=== PATIENT | female | born 1980 | race Caucasian/White ===

== ENCOUNTER 2016-08-03 12:52 | Emergency (ER) | payer OTHER ==
[~2016-08-03] VITALS: Ht 160 cm; Wt 116.3 kg
[~2016-08-03 12:52] MED LIST: RIVA1TAB7 PO
[2016-08-03 12:55] VITALS: TEMP 36.7; Ht 160 cm; Wt 116.3 kg
--- NOTE | 2016-08-03 13:57 | DIAGNOSTIC IMAGING REPORT ---
LEFT KNEE 1 OR 2 VIEWS ROUTINE CLINICAL HISTORY: Left knee pain. COMPARISON: None FINDINGS: Alignment of the left knee is anatomic. There is no fracture or suspicious lesion. No joint effusion is identified. Joint spaces are preserved. IMPRESSION: No abnormality of the left knee identified. Electronically signed by: Bean Hurley M.D. 08/03/2016 1:55 PM Dictated Date/Time: 08/03/2016 1:54 PM
--- NOTE | 2016-08-03 14:06 | EMERGENCY ROOM VISIT NOTE ---
ED Visit Note First contact with patient: 12:58 CHIEF COMPLAINT: Left knee pain/injury HISTORY OF PRESENT ILLNESS: This 35-year-old female presents the ER with chief complaint of left knee pain. The patient states 2 weeks ago she slipped in her udsqvoa-ht-nwd's driveway but did not fall down. The patient states since that time she has had pain in the left knee. She denies any other injuries to her left knee or any prior surgeries. The patient does have a history of DVT in the same leg last year. The patient denies any calf pain. The patient denies any locking or giving out on her knee. The patient states that it hurts if you press on to the knee Or if she kneels onto her knee. She also has pain when she flexes the knee but not with extension. REVIEW OF SYSTEMS: 6 system review was performed and was negative unless stated otherwise in history of present illness. PMH: The patient is healthy; cyst on the in the front in the surgery Center or here for , kidney stones, tubal ligation SOCIAL HISTORY: Patient admits to tobacco use and occasional alcohol use. PHYSICAL EXAM: Vital Signs: Were reviewed Reviewed Nurse's notes. GEN.: 35-year -old white female appears in no acute distress. MENTAL STATUS: Alert, oriented , and cooperative. LEFT KNEE: No gross bony deformity noted. No erythema or edema noted. The patient is tenderness palpation over the patella and over the suprapatellar region. She is non-tender to palpation over the medial and lateral joint space. There is no joint effusion. The patient is full range of motion with pain elicited with flexion. The patient is nontender to palpation in the popliteal region. LEFT LOWER EXTREMITY: Is nontender. No palpable cords noted EMERGENCY DEPARTMENT COURSE: The patient was evaluated. The patient drove herself to the emergency room therefore no additional pain medication was given. The patient has been taking ibuprofen 600 mg for the pain. X-ray of the left knee was ordered and interpreted by the radiologist and myself. I discussed with the patient that I cannot rule out a tendon/muscle or ligament tear with the x-ray. The patient verbalized understanding DIAGNOSTICS:LEFT KNEE 1 OR 2 VIEWS ROUTINE CLINICAL HISTORY: Left knee pain. COMPARISON: None FINDINGS: Alignment of the left knee is anatomic. There is no fracture or suspicious lesion. No joint effusion is identified. Joint spaces are preserved. IMPRESSION: No abnormality of the left knee identified. Electronically signed by: Bean Hurley M.D. 08/03/2016 1:55 PM Dictated Date/Time: 08/03/2016 1:54 PM The patient was informed of the findings. The patient was placed in an Mario wrap. The patient was discharged home in stable condition with instructions to follow with orthopedics. DIAGNOSIS: Left knee sprain/pain DISCHARGE INSTRUCTIONS: Wear Mario wrap while ambulating. Ibuprofen 600 mg every 6 hours with food for pain. Take [place] as needed for more severe pain. Do not drive while taking the [place]. Call Dr. Bass for follow-up appointment. Problem List Medical Problems: (1) Pneumonia Status: Resolved (2) Thoracic degenerative disc disease Status: Chronic Surgical Problems: (1) History of delivery Status: Resolved (2) History of tubal ligation Status: Resolved Current/Historical Medications Scheduled PRN Ibuprofen Tab (Advil), 400-600 MG PO Q6H PRN for Pain Allergies Coded Allergies: No Known Allergies (Unverified , 08/29/15) Vital Signs Date Time Temp Pulse Resp B/P Pulse Ox O2 Delivery O2 Flow Rate FiO2 08/03/16 12:55 36.7 96 18 132/62 99 Room Air Departure Information Referrals Lucretia Dalton D.O. (PCP) Patient Instructions A Signature Page, My [facility]
[2016-08-03] MEDS ORDERED: HYDR-5688 PO (14:08)
[2016-08-03 14:12] VITALS: BP 139/71; PULSE 88; O2SAT 100
[2016-08-03] MEDS ORDERED: IBUP-103 PO (16:13)
== END 2016-08-03 14:13 | disposition home or self-care (01) ==
LOC: C.EDB 12:53 → C.EDD 14:13
DX: S83.92XA Sprain of unspecified site of left knee, initial encounter (principal); W18.40XA Slipping, tripping and stumbling without falling, unspecified, initial encounter; Y92.014 Private driveway to single-family (private) house as the place of occurrence of the external cause; F17.200 Nicotine dependence, unspecified, uncomplicated; M51.34 Other intervertebral disc degeneration, thoracic region; Z86.718 Personal history of other venous thrombosis and embolism; Z87.442 Personal history of urinary calculi

== ENCOUNTER 2017-11-25 05:47 | Emergency (ER) | payer OTHER ==
[~2017-11-25] VITALS: Ht 157.5 cm; Wt 117.0 kg
[~2017-11-25 05:47] MED LIST changes: +IBUP-103 PO; -RIVA1TAB7 PO
[2017-11-25 05:51] VITALS: TEMP 36.5; Ht 157.5 cm; Wt 117.0 kg
[2017-11-25] MEDS ORDERED: KETOROLAC TROMETHAMINE 60 MG/2 ML VIAL IM STA (06:03)
--- NOTE | 2017-11-25 06:09 | EMERGENCY ROOM VISIT NOTE ---
History Report prepared by [place]: Humphrey Douglas Under the Supervision of: Dr. Palma Brooks D.O. First contact with patient: 05:56 Chief Complaint: EAR PAIN Stated Complaint: SEVERE EAR ACHE History of Present Illness The patient is a 36 year old female who presents to the Emergency Room with complaints of constant left ear pain beginning a few days ago. The patient states that her ear pain has been waking her up throughout the night tonight. She notes that she has been taking ibuprofen around the clock for her symptoms, and reports that she took ten tablets yesterday with no relief. She also complains of a stuffy nose. She denies any fever, chills, and abdominal pain. She reports that she has a history of ear infections when she was really young but denies any history of diabetes. She rates her pain as a 9/10. Source of History: patient Onset: a few days ago Position: ear (left) Symptom Intensity: 9/10 Timing: constant Associated Symptoms: No fevers, No chills, No abdominal pain Note: The patient also complains of a stuffy nose. Review of Systems See HPI for pertinent positives & negatives. A total of 10 systems reviewed and were otherwise negative. Past Medical & Surgical Medical Problems: (1) Ear infection (2) Kidney stone (3) Pneumonia (4) Thoracic degenerative disc disease Surgical Problems: (1) History of delivery (2) History of tubal ligation Family History Cancer Hypertension Social History Smoking Status: Current Every Day Smoker Alcohol Use: occasionally Drug Use: none Marital Status: Housing Status: lives with family Occupation Status: employed Current/Historical Medications Scheduled PRN Ibuprofen Tab (Advil), 400-600 MG PO Q6H PRN for Pain Allergies Coded Allergies: No Known Allergies (Unverified , 08/29/15) Physical Exam Vital Signs Date Time Temp Pulse Resp B/P (MAP) Pulse Ox O2 Delivery O2 Flow Rate FiO2 11/25/17 05:51 36.5 95 20 136/83 98 Room Air Physical Exam HEENT: Head - normocephalic and atraumatic Pupils are equal, round, and reactive to light. Extraocular eye muscles are intact, and sclera are anicteric. Nose - moist nasal mucosa without discharge. Mouth - moist buccal mucosa. Oropharynx is nonerythematous and there is no tonsillar exudate or edema noted. Ear - Left ear has significant edema and erythema to the canal, TM normal. The right ear is normal. Neck: Supple; no nuchal rigidity or lymphadenopathy Heart: Regular rate and rhythm. There is a normal S1 and S2 with no murmurs, clicks, or gallops appreciated. Lungs: Clear to auscultation bilaterally with no wheezes, rales, or rhonchi. Abdomen: Soft, completely nontender, nondistended, with good bowel sounds. There are no palpable pulsatile masses or hepatosplenomegaly. There is no guarding, rigidity, or rebound noted. Extremities: No evidence of cyanosis, clubbing, or edema. There are easily palpable peripheral pulses. Skin: warm and dry with good turgor and no rashes. Medical Decision & Procedures Medications Administered Medications (Trade) Dose Ordered Sig/Johan Route Start Time Stop Time Status Last Admin Dose Admin Ketorolac Tromethamine (Toradol Inj) 60 mg NOW STAT IM 11/25/17 06:03 11/25/17 06:08 DC 11/25/17 06:20 60 MG Oxycodone/ Acetaminophen (Percocet 5/ 325MG Home Pack) 1 homepack UD ONCE PO 11/25/17 06:15 11/25/17 06:16 DC 11/25/17 06:19 1 HOMEPACK Neomycin/ Polymyxin/ Hydrocortisone (Cortisporin Otic Susp) 4 drops NOW ONCE OTL 11/25/17 06:15 11/25/17 06:16 DC 11/25/17 06:20 4 DROPS Procedure Toradol Inj 60mg IM Cortisporin Otic Susp 4 drops OTL, Oxycodone/Acetaminophen 1 homepack PO ED Course 0557: Past medical records reviewed. The patient was evaluated in room B10. A complete history and physical exam was performed. 0603: Toradol Inj 60mg IM 0615: Cortisporin Otic Susp 4 drops OTL, Oxycodone/Acetaminophen 1 homepack PO 0614: Upon reevaluation, the patient is stable. I discussed findings and results with her. She verbalized agreement of the treatment plan. The patient was discharged home. Medical Decision The patient is a 36 year old female who presents to the Emergency Room with complaints of constant left ear pain beginning a few days ago. Differential diagnoses include: otitis media, otitis externa, and perforated TM. This is a 36-year-old female patient who presents with severe left ear pain. On physical exam, there is evidence of otitis externa. The patient denies any specific swimming but had her head submerged in the bathtub. She was given Toradol here in the emergency department as she drove to the hospital. She was given a Percocet home pack to use when she arrives back home. She was given Cortisporin otic solution to use-4 drops in the left ear every 4 hours. Medication Reconcilliation Current Medication List: was personally reviewed by me Blood Pressure Screening Patient's blood pressure: Elevated blood pressure Blood pressure disposition: Elevated BP felt to be situational (secondary to pain) Impression Primary Impression: Left otitis externa Scribe Attestation The scribe's documentation has been prepared under my direction and personally reviewed by me in its entirety. I confirm that the note above accurately reflects all work, treatment, procedures, and medical decision making performed by me. Departure Information Dispostion Home / Self-Care Referrals Lucretia Dalton D.O. (PCP) Forms HOME CARE DOCUMENTATION FORM, IMPORTANT VISIT INFORMATION, WORK / SCHOOL INSTRUCTIONS Patient Instructions My [facility] Additional Instructions Rest with your head elevated. Percocet 1-2 tabs. every 6 hours for pain. Otherwise use motrin - 800mg every 6-8 hours with food for pain Cortisporin drops - 4 drops to left ear every 6 hours. Follow up by Wednesday to have the ear rechecked. Problem Qualifiers Primary Impression: Left otitis externa Otitis externa type: unspecified type Chronicity: acute Qualified Codes: H60.502 - Unspecified acute noninfective otitis externa, left ear
[2017-11-25] MEDS ORDERED: NEOMYCIN/POLYMYX/HYDROCORT OT SUSP 10 ML BTL OTL ONE (06:15)
[2017-11-25] MEDS ORDERED: PERCOCET HOME PACK PO ONE (06:15)
[2017-11-25 06:44] VITALS: BP 117/91; PULSE 87; O2SAT 96
== END 2017-11-25 06:46 | disposition home or self-care (01) ==
LOC: C.EDB 05:48
DX: H60.502 Unspecified acute noninfective otitis externa, left ear (principal); R03.0 Elevated blood-pressure reading, without diagnosis of hypertension; F17.200 Nicotine dependence, unspecified, uncomplicated

== ENCOUNTER 2017-11-28 14:38 | Emergency (ER) | payer OTHER ==
[~2017-11-28] VITALS: Ht 160 cm; Wt 118.6 kg
[2017-11-28 14:48] VITALS: Ht 160 cm; Wt 118.6 kg
[2017-11-28] MEDS ORDERED: NEOM1SUS21 OP (15:01)
[2017-11-28] MEDS ORDERED: AMOX500C3 PO (15:01)
[2017-11-28 15:15] VITALS: BP 127/82; PULSE 88; TEMP 37; O2SAT 97
--- NOTE | 2017-11-28 16:21 | EMERGENCY ROOM VISIT NOTE ---
ED Visit Note First contact with patient: 14:52 CHIEF COMPLAINT: Left earache HISTORY OF PRESENT ILLNESS: This 36-year-old white female patient has had an earache in the left ear for several days. She was seen here earlier this week and was diagnosed with otitis externa. She was given Cortisporin otic suspension and oral pain medication. She states the ear pain is actually getting worse. She has been using Motrin 600 mg every 6 hours and occasional half tablets of Percocet. She is concerned that it is getting worse. She notes that her hearing has decreased. The pain is moderate, and is gradually increasing. Has noticed swelling and tenderness around the ear canal and pain below the ear on the upper neck. No fevers or chills. No sweats. No nausea or vomiting. No rhinorrhea or cough. She became concerned today when there was wet pus and blood coming from her ear. REVIEW OF SYSTEMS: Head: No headache, injury or neck pain. Throat: No sore throat, dysphagia, or hoarseness. Neck: No pain, stiffness, or swelling. Respiratory: No cough, change in sputum, wheezes, hemoptysis, shortness of breath, or stridor. General: No fever or chills, fatigue, loss of appetite, or significant recent weight gain or loss. PMH: Unchanged from previous exam. Significant for history of pneumonia, DVT, UTIs, kidney stones, and chronic back pain Previous surgeries: , tubal ligation Family history: Significant for hypertension and cancer. Parents are living. Current medications: Percocet, Cortisporin otic suspension Allergies: NKDA SOCIAL HISTORY: Patient lives at home with her and children. Employed. Positive vapor use. Occasional EtOH use. PHYSICAL EXAM: Vital Signs: Reviewed Nurse's notes. Afebrile. SKIN: Warm and dry with good turgor. No rashes or lesions. No ecchymosis or erythema. The patient is not diaphoretic. No abrasions. Mild edema present around the left ear. HEENT: Normocephalic, atraumatic. Nares patent without drainage. Oropharynx without erythema or exudate. The airway is patent. Right ear exam is benign. Left ear tympanic membrane is slightly cloudy and scaly and the ear canal is swollen and inflamed and there is tragal tenderness. Minor exudate within the canal. She has a few raw areas that are bleeding mildly. Tympanic membrane remains well visualized. Lymphatics: Anterior chain is palpated without enlargement or tenderness. Left periauricular nodes are palpated with tenderness. DIAGNOSIS: Acute left ear otitis externa DISCHARGE INSTRUCTIONS & TREATMENT: Patient was educated regarding today's findings. Conservative care measures were discussed. Informational handout was provided. I did place a wick within her ear. She may remove this tomorrow evening at dinnertime. I did place 5 drops of Cortisporin suspension on the wick. Continue Cortisporin otic drops, 4 in the ear canal 4 times a day for 7 days until the pain and swelling are gone. Continue Tylenol and Motrin every 6 hours if needed for the pain. I did offer her additional narcotic. Patient declined. She was also prescribed amoxicillin 500 mg 3 times daily 10 days due to the tympanic membrane changes. Possibility of secondary infection was discussed. Follow-up with her PCP as needed. Return to the ED for any other concerns. Problem List Medical Problems: (1) Pneumonia Status: Resolved (2) Thoracic degenerative disc disease Status: Chronic Surgical Problems: (1) History of delivery Status: Resolved (2) History of tubal ligation Status: Resolved Current/Historical Medications Scheduled Amoxicillin (Amoxil), 500 MG PO TID Rfsjcakt-Iggtsifvo-Eh Otic (Cortisporin Otic), 4 DROPS OP QID Scheduled PRN Ibuprofen Tab (Advil), 400-600 MG PO Q6H PRN for Pain Allergies Coded Allergies: No Known Allergies (Unverified , 08/29/15) Vital Signs Date Time Temp Pulse Resp B/P (MAP) Pulse Ox O2 Delivery O2 Flow Rate FiO2 11/28/17 15:15 37.0 88 18 127/82 97 11/28/17 14:48 37.0 88 18 127/82 97 Room Air Departure Information Impression Primary Impression: Otitis externa of left ear Dispostion Home / Self-Care Prescriptions Sdlyymac-Zbmavxixr-Dj Otic (CORTISPORIN OTIC) 1 Gretta Gretta 4 DROPS OP QID, #1 BTL Prov: Raman Randolph,P.A. 11/28/17 Amoxicillin (AMOXIL) 500 Mg Cap 500 MG PO TID, #30 CAP Prov: Raman Randolph,P.A. 11/28/17 Forms WORK / SCHOOL INSTRUCTIONS, HOME CARE DOCUMENTATION FORM, MOTRIN USE, TYLENOL USE, IMPORTANT VISIT INFORMATION Patient Instructions My [facility] Additional Instructions Keep the ear dry Remove the wick tomorrow at dinnertime Amoxil 1 pill 3 times a day 10 days Continue using the Cortisporin suspension 4 drops in the ear 4 times a day Follow-up with your PCP this week as needed Return to the ED for any acute worsening of symptoms Ibuprofen 600 mg every 6 hours with food Add Tylenol 650 mg every 6 hours as needed
== END 2017-11-28 15:18 | disposition home or self-care (01) ==
LOC: C.EDB 14:39 → C.EDD 15:18
DX: H60.92 Unspecified otitis externa, left ear (principal); Z87.01 Personal history of pneumonia (recurrent); Z86.718 Personal history of other venous thrombosis and embolism; Z87.440 Personal history of urinary (tract) infections; Z87.442 Personal history of urinary calculi; M54.9 Dorsalgia, unspecified; G89.29 Other chronic pain; Z98.51 Tubal ligation status; Z82.49 Family history of ischemic heart disease and other diseases of the circulatory system; Z80.9 Family history of malignant neoplasm, unspecified

== ENCOUNTER 2017-12-19 13:23 | Emergency (ER) | payer OTHER ==
[~2017-12-19] VITALS: Ht 157.5 cm; Wt 121.5 kg
[~2017-12-19 13:23] MED LIST changes: +NEOM1SUS21 OP
[2017-12-19 13:25] VITALS: TEMP 36.7; Ht 157.5 cm; Wt 121.5 kg
[2017-12-19] MEDS ORDERED: MoRPHine SULFATE 4 MG/ML 1 ML CARP\\VIAL IV STA (13:39)
[2017-12-19] MEDS ORDERED: ONDANSETRON INJ 2 MG/ML 2 ML VIAL IV STA (13:39)
[2017-12-19] MEDS ORDERED: KETOROLAC TROMETHAMINE 30 MG/ML VIAL IV STA (13:39)
[2017-12-19] MEDS ORDERED: SODIUM CHLORIDE 0.9% 1000ML 1,000 ML IV ONE (13:45)
--- NOTE | 2017-12-19 14:18 | EMERGENCY ROOM VISIT NOTE ---
History First contact with patient: 13:31 Chief Complaint: BACK PAIN Stated Complaint: SEVERE BACK AND STOMACH PAIN History of Present Illness The patient is a 37 year old female who presents to the Emergency Room with complaints of left-sided flank pain radiating to the left side of her abdomen. The pain is constant, but occasionally intensifies. She tried ibuprofen 800 mg with minimal relief. She has also been nauseated without vomiting. She has had urinary frequency. No blood in her urine. No fever. No changes in bowel movements. She has a history of kidney stones. Review of Systems 10 system review performed and negative unless noted in HPI or below Past Medical/Surgical History Medical Problems: (1) Ear infection (2) Kidney stone (3) Pneumonia (4) Thoracic degenerative disc disease Surgical Problems: (1) History of delivery (2) History of tubal ligation Family History Cancer Hypertension Social History Smoking Status: Never Smoker Alcohol Use: occasionally Drug Use: none Marital Status: Housing Status: lives with family Occupation Status: employed Current/Historical Medications Scheduled Cyclobenzaprine Hcl (Flexeril), 10 MG PO TID Scheduled PRN Hydrocodone/Acetaminophen 5MG/325MG ([place] 5MG/325MG), 1-2 TABLET PO Q4H PRN for Pain Ibuprofen Tab (Advil), 800 MG PO Q6H PRN for Pain Physical Exam Vital Signs Date Time Temp Pulse Resp B/P (MAP) Pulse Ox O2 Delivery O2 Flow Rate FiO2 12/19/17 15:51 76 20 128/89 100 12/19/17 13:25 36.7 87 18 150/83 98 Room Air Physical Exam VITALS: Vitals are noted on the nurse's note and reviewed by myself. Vital signs stable. GENERAL: 37-year-old female, in mild discomfort,,. SKIN: The skin was without rashes, erythema, edema, or bruising. HEAD: Normocephalic atraumatic. EYES: Conjunctivae without injection, sclerae without icterus. Extraocular movements intact. MOUTH: Mucous membranes slightly dry NECK: No JVD. HEART: Regular rate and rhythm without murmurs gallops or rubs. LUNGS: Clear to auscultation bilaterally without wheezes, rales or rhonchi. No accessory muscle use. ABDOMEN: Positive bowel sounds x 4.Soft, nontender, without organomegaly. No guarding or rebound tenderness. Left-sided CVA tenderness noted. MUSCULOSKELETAL: No muscle atrophy, erythema, or edema noted. . Strength 5/5 throughout. NEURO: Patient was alert and oriented to person place and time. Normal sensation to touch. No focal neurological deficits. Medical Decision & Procedures ER Provider Diagnostic Interpretation: CT abdomen and pelvis without IV or oral contrast IMPRESSION: 1. Left-sided nephrolithiasis. No ureteral calculi or hydronephrosis. 2. No bowel obstruction. Normal appendix. 3. No acute process within the abdomen or pelvis on unenhanced study. Electronically signed by: Bean Hurley M.D. 12/19/2017 2:50 PM Dictated Date/Time: 12/19/2017 2:45 PM Laboratory Results 12/19/17 14:05 Red Blood Count 4.75, Mean Corpuscular Volume 84.0, Mean Corpuscular Hemoglobin 28.0, Mean Corpuscular Hemoglobin Concent 33.3, Mean Platelet Volume 10.0, Neutrophils (%) (Auto) 57.7, Lymphocytes (%) (Auto) 33.1, Monocytes (%) (Auto) 6.4, Eosinophils (%) (Auto) 2.5, Basophils (%) (Auto) 0.2, Neutrophils # (Auto) 5.48, Lymphocytes # (Auto) 3.14, Monocytes # (Auto) 0.61, Eosinophils # (Auto) 0.24, Basophils # (Auto) 0.02 12/19/17 14:05 Test 12/19/17 14:05 12/19/17 14:08 White Blood Count 9.50 K/uL (4.8-10.8) Red Blood Count 4.75 M/uL (4.2-5.4) Hemoglobin 13.3 g/dL (12.0-16.0) Hematocrit 39.9 % (37-47) Mean Corpuscular Volume 84.0 fL (80-100) Mean Corpuscular Hemoglobin 28.0 pg (25-34) Mean Corpuscular Hemoglobin Concent 33.3 g/dl (32-36) Platelet Count 234 K/uL (130-400) Mean Platelet Volume 10.0 fL (7.4-10.4) Neutrophils (%) (Auto) 57.7 % Lymphocytes (%) (Auto) 33.1 % Monocytes (%) (Auto) 6.4 % Eosinophils (%) (Auto) 2.5 % Basophils (%) (Auto) 0.2 % Neutrophils # (Auto) 5.48 K/uL (1.4-6.5) Lymphocytes # (Auto) 3.14 K/uL (1.2-3.4) Monocytes # (Auto) 0.61 K/uL (0.11-0.59) Eosinophils # (Auto) 0.24 K/uL (0-0.5) Basophils # (Auto) 0.02 K/uL (0-0.2) RDW Standard Deviation 42.4 fL (36.4-46.3) RDW Coefficient of Variation 13.8 % (11.5-14.5) Immature Granulocyte % (Auto) 0.1 % Immature Granulocyte # (Auto) 0.01 K/uL (0.00-0.02) Anion Gap 8.0 mmol/L (3-11) Est Creatinine Clear Calc Drug Dose 127.5 ml/min Estimated GFR () 118.0 Estimated GFR (Non- 101.8 BUN/Creatinine Ratio 14.7 (10-20) Calcium Level 8.6 mg/dl (8.5-10.1) Urine Color YELLOW Urine Appearance CLEAR (CLEAR) Urine pH 5.5 (4.5-7.5) Urine Specific [place] 1.020 (1.000-1.030) Urine Protein NEG (NEG) Urine Glucose (UA) NEG (NEG) Urine Ketones NEG (NEG) Urine Occult Blood NEG (NEG) Urine Nitrite NEG (NEG) Urine Bilirubin NEG (NEG) Urine Urobilinogen NEG (NEG) Urine Leukocyte Esterase NEG (NEG) Urine Test NEG (NEG) Medications Administered Medications (Trade) Dose Ordered Sig/Johan Route Start Time Stop Time Status Last Admin Dose Admin Sodium Chloride 1,000 ml @ 999 mls/hr Q1H1M ONCE IV 12/19/17 13:45 12/19/17 14:45 DC 12/19/17 14:02 999 MLS/HR Morphine Sulfate (MoRPHine SULFATE INJ) 4 mg ONE STAT IV 12/19/17 13:39 12/19/17 13:42 DC 12/19/17 14:00 4 MG Ondansetron HCl (Zofran Inj) 4 mg NOW STAT IV 12/19/17 13:39 12/19/17 13:42 DC 12/19/17 13:59 4 MG Ketorolac Tromethamine (Toradol Inj) 30 mg NOW STAT IV 12/19/17 13:39 12/19/17 13:42 DC 12/19/17 14:00 30 MG ED Course Patient was seen and examined Vital signs including blood pressure were reviewed medications list was verified with patient Labs were obtained, and a saline lock was established The patient was medicated with 4 mg of morphine and Zofran 4 mg IV. She was hydrated with 1 L of normal saline. Imaging was performed and reviewed Upon reevaluation, the patient was resting comfortably. She said that she was slightly drowsy, and was able to take a nap. We discussed her workup. She voiced understanding, was comfortable being discharged home. I reviewed discharge instructions the patient. They voiced understanding and had no further questions. Medical Decision Differential diagnosis: Ureteral stone, pyelonephritis, UTI, ovarian cyst, diverticulitis, musculoskeletal pain This patient is a 37-year-old female presents to the emergency department with complaints of left-sided flank pain radiating to her abdomen. On exam, she had some tenderness over the left flank. Her workup is fairly unremarkable. There is no leukocytosis. Renal function is intact. CT scan did not show any ureteral stones. She did have nephrolithiasis. Her urinalysis is clean. The etiology of her pain is unclear. It could be musculoskeletal in nature. It is possible that she also passed a small stone. The patient had excellent pain relief in the emergency department. I believe she is stable to be discharged home with close follow-up. She was comfortable with this plan, and agrees to return with any new or concerning symptoms This chart was completed in part utilizing [employer] Speech Voice Recognition software. Attempts were made to minimize the grammatical errors, random word insertions, pronoun errors and incomplete sentences. Any formal questions or concerns about the content, text or information contained within the body of this dictation should be directly addressed to the provider for clarification. Impression Primary Impression: Left flank pain Departure Information Dispostion Home / Self-Care Condition GOOD Prescriptions Cyclobenzaprine Hcl (FLEXERIL) 10 Mg Tab 10 MG PO TID for Muscle Spasms, #15 TAB Prov: Shahla Murillo PA-C 12/19/17 Hydrocodone/Acetaminophen 5MG/325MG ([place] 5MG/325MG) Tab 1-2 TABLET PO Q4H Y for Pain, #15 TAB For Initial Treatment Prov: Shahla Murillo PA-C 12/19/17 Referrals No Doctor, Assigned (PCP) Patient Instructions My [facility] Additional Instructions You have been evaluated in the emergency department for left-sided flank and abdominal pain. There were no significant abnormalities in your workup today. It is possible that this pain is either muscular in nature or that you passed a small kidney stone Ibuprofen 800 mg every 8 hours as needed. Do not exceed 2400 mg in a 24-hour period. [place] 1-2 tabs every 4 hours for severe pain. Do not drink alcohol or drive while taking this medication. This may be taken with ibuprofen, but avoid Tylenol. This medication may cause constipation Flexeril every 8 hours as needed for muscle spasm/pain. Please also do not drink alcohol or drive while taking this medication. Please follow-up with your primary care physician as soon as possible for recheck. Do not hesitate to return to the emergency department with any new, worsening or concerning symptoms It was a pleasure participating in your care today
[2017-12-19 14:19] LABS: BASO % 0.2 %; BASO ABS # 0.02 K/uL (0-0.2); EOS % 2.5 %; EOS ABS # 0.24 K/uL (0-0.5); HEMATOCRIT 39.9 % (37-47); HEMOGLOBIN 13.3 g/dL (12.0-16.0); IG# 0.01 K/uL (0.00-0.02); LYMPH % 33.1 %; LYMPH ABS # 3.14 K/uL (1.2-3.4); MEAN CORPUSCULAR HGB CONC 33.3 g/dl (32-36); MONO % 6.4 %; MONO ABS # 0.61 K/uL (0.11-0.59); NEUT % 57.7 %; NEUT ABS # 5.48 K/uL (1.4-6.5); PLATELET COUNT 234 K/uL (130-400); RED CELL DISTRIBUTION WIDTH CV 13.8 % (11.5-14.5); RED CELL DISTRIBUTION WIDTH SD 42.4 fL (36.4-46.3)
[2017-12-19 14:43] LABS: CALCIUM 8.6 mg/dl (8.5-10.1); CREATININE 0.75 mg/dl (0.60-1.20); POTASSIUM 4.1 mmol/L (3.5-5.1)
--- NOTE | 2017-12-19 14:51 | DIAGNOSTIC IMAGING REPORT ---
CT OF THE ABDOMEN AND PELVIS WITHOUT CONTRAST, STONE PROTOCOL CLINICAL HISTORY: Left flank pain. Urinary symptoms. COMPARISON STUDY: CT of the abdomen and pelvis August 29, 2015. TECHNIQUE: Helical axial images of the abdomen and pelvis were obtained without IV or oral contrast according to renal stone protocol. A dose lowering technique was utilized adhering to the principles of ALARA. FINDINGS: Lung bases are clear. There are several clustered calculi within the lower pole of the left kidney that measure up to 5 mm. There are no ureteral calculi and there is no hydronephrosis. Unenhanced images of liver, spleen, adrenal glands and pancreas are unremarkable. There is no biliary or pancreatic ductal dilatation. No peripancreatic or pericholecystic infiltration is present. There is no evidence for a bowel obstruction. The appendix is normal. The ovaries are not enlarged. There is no ascites or lymphadenopathy. No suspicious osseous lesions are present. IMPRESSION: 1. Left-sided nephrolithiasis. No ureteral calculi or hydronephrosis. 2. No bowel obstruction. Normal appendix. 3. No acute process within the abdomen or pelvis on unenhanced study. Electronically signed by: Bean Hurley M.D. 12/19/2017 2:50 PM Dictated Date/Time: 12/19/2017 2:45 PM
[2017-12-19] MEDS ORDERED: HYDR-5688 PO (15:29)
[2017-12-19] MEDS ORDERED: CYCL10TA6 PO (15:29)
[2017-12-19 15:51] VITALS: BP 128/89; PULSE 76; O2SAT 100
== END 2017-12-19 15:52 | disposition home or self-care (01) ==
LOC: C.EDB 13:24 → C.EDC 15:52
DX: R10.9 Unspecified abdominal pain (principal); N20.0 Calculus of kidney

== ENCOUNTER 2018-03-17 13:56 | Emergency (ER) | payer OTHER ==
[~2018-03-17] VITALS: Ht 157.5 cm; Wt 118.2 kg
[~2018-03-17 13:56] MED LIST changes: +HYDR-5688 PO; -NEOM1SUS21 OP
[2018-03-17 14:10] VITALS: TEMP 36.8; Ht 157.5 cm; Wt 118.2 kg
[2018-03-17] MEDS ORDERED: OPTIRAY 320 IV PRN (14:45)
[2018-03-17 15:42] LABS: ISTAT CREATININE 0.7 mg/dl (0.6-1.3); ISTAT IONIZED CALCIUM 1.24 mmol/l (1.12-1.32); ISTAT POTASSIUM 3.8 mEq/L (3.3-5.0)
--- NOTE | 2018-03-17 16:03 | DIAGNOSTIC IMAGING REPORT ---
CT NECK ANGIO WITH CONTRAST CLINICAL HISTORY: Neck pain with left arm numbness and tingling. COMPARISON STUDY: No previous studies for comparison. TECHNIQUE: CT angiography was performed from the aortic arch to the skull base. MIP imaging was performed. The patient was scanned in a dynamic helical fashion during intravenous administration of 120 cc of Optiray 320. A dose lowering technique was utilized adhering to the principles of ALARA. CT DOSE: 525.21 mGy.cm Technique: CT angiogram of the carotid and vertebral arteries was obtained using intravenous contrast and 3-D reconstruction. NASCET criteria was utilized. Findings: The right carotid revealed no evidence of aneurysm and no evidence of dissection. There is no evidence of hemodynamic significant stenosis. The left carotid revealed no evidence of hemodynamic significant stenosis. There is no evidence of aneurysm. There is no evidence of dissection. There is no evidence of hemodynamically significant vertebral stenosis. There is no evidence of vertebral dissection. 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 IMPRESSION: 1. No evidence of carotid artery stenosis or dissection 2. Diminutive vertebral arteries, and proximal basilar artery hypoplasia. 3. Persistent right-sided carotid vertebrobasilar anastomosis. Electronically signed by: Fish Johnson M.D. 03/17/2018 4:02 PM Dictated Date/Time: 03/17/2018 3:54 PM
[2018-03-17] MEDS ORDERED: CYCL5TAB PO (16:30)
--- NOTE | 2018-03-17 16:30 | EMERGENCY ROOM VISIT NOTE ---
History First contact with patient: 14:25 Chief Complaint: BACK PAIN Stated Complaint: VERY PAINFUL NECK,BACK -LEFT ARM NUMBNESS History of Present Illness The patient is a 37 year old female who presents to the Emergency Room with complaints of "very painful neck, back-left arm numbness". The patient states that earlier today about 1.5 hours prior to arrival she was manipulating her neck, when she turned her to the side and cracked the neck and then immediately began with neck pain and tingling sensation down the left arm. She rates the pain as a 7/10. She tried 600 mg ibuprofen this morning with minimal relief. Review of Systems A complete 6-point Review of Systems was discussed with the patient, with pertinent positives and negatives listed in the History of Present Illness. All remaining Review of Systems questions can be considered negative unless otherwise specified. Past Medical/Surgical History Medical Problems: (1) Ear infection (2) Kidney stone (3) Pneumonia (4) Thoracic degenerative disc disease Surgical Problems: (1) History of delivery (2) History of tubal ligation Family History Cancer Hypertension Social History Smoking Status: Current Every Day Smoker Alcohol Use: occasionally Drug Use: none Marital Status: Housing Status: lives with family Occupation Status: employed Current/Historical Medications Scheduled PRN Cyclobenzaprine Hcl (Flexeril), 1-2 TABS PO Q8 PRN for Muscle Spasms Physical Exam Vital Signs Date Time Temp Pulse Resp B/P (MAP) Pulse Ox O2 Delivery O2 Flow Rate FiO2 03/17/18 16:43 71 18 144/89 96 03/17/18 14:10 36.8 88 20 136/78 97 Room Air Physical Exam VITAL SIGNS - Vital signs and nursing notes were reviewed. Stable. Afebrile. GENERAL - 37-year-old female appearing her stated age who is in no acute distress. Communicates well with provider and answers questions appropriately. SKIN - Without rashes. No meningeal or petechial rash. The skin around the neck is unremarkable. HEAD - NC/AT. EYES - PERRL with EOMI bilaterally. Sclera anicteric. EARS - No deformities of external structures noted on gross examination bilaterally. NOSE - Midline and without cyanosis. No epistaxis or purulent drainage noted. MOUTH/OROPHARYNX - Without perioral cyanosis. NECK - Neck with FROM. Supple to palpation. No lymphadenopathy noted. No nuchal rigidity. There is minimal C-spine tenderness noted as well as notable palpable paraspinous muscular tenderness that extends into the shoulders. LUNGS - Chest wall symmetric without accessory muscle use, intercostals retractions, or central cyanosis. Normal vesicular breath sounds CTA B/L. No wheezes, rales, or rhonchi appreciated. CARDIAC - RRR with S1/S2. No murmur, rubs, or gallops appreciated. EXTREMITIES - No clubbing or peripheral cyanosis. No pretibial edema present. Excellent bicipital reflex. +5/5 strength noted in UE/LE bilaterally. NEUROLOGIC - Cranial nerves II through XII grossly intact. Sensory intact to light touch throughout. PSYCH - A&O, and cooperates fully with examiner. Pt is very pleasant and interacts well with examiner. Medical Decision & Procedures ER Provider Diagnostic Interpretation: CT NECK ANGIO WITH CONTRAST CLINICAL HISTORY: Neck pain with left arm numbness and tingling. COMPARISON STUDY: No previous studies for comparison. TECHNIQUE: CT angiography was performed from the aortic arch to the skull base. MIP imaging was performed. The patient was scanned in a dynamic helical fashion during intravenous administration of 120 cc of Optiray 320. A dose lowering technique was utilized adhering to the principles of ALARA. CT DOSE: 525.21 mGy.cm Technique: CT angiogram of the carotid and vertebral arteries was obtained using intravenous contrast and 3-D reconstruction. NASCET criteria was utilized. Findings: The right carotid revealed no evidence of aneurysm and no evidence of dissection. There is no evidence of hemodynamic significant stenosis. The left carotid revealed no evidence of hemodynamic significant stenosis. There is no evidence of aneurysm. There is no evidence of dissection. There is no evidence of hemodynamically significant vertebral stenosis. There is no evidence of vertebral dissection. 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 IMPRESSION: 1. No evidence of carotid artery stenosis or dissection 2. Diminutive vertebral arteries, and proximal basilar artery hypoplasia. 3. Persistent right-sided carotid vertebrobasilar anastomosis. Electronically signed by: Fish Johnson M.D. 03/17/2018 4:02 PM Dictated Date/Time: 03/17/2018 3:54 PM Laboratory Results Test 03/17/18 14:54 Bedside Hemoglobin 13.9 g/dl (12.0-16.0) Bedside Hematocrit 41 % (37-47) Bedside Sodium 140 mEq/L (135-144) Bedside Potassium 3.8 mEq/L (3.3-5.0) Bedside Chloride 102 mEq/L (101-112) Bedside Total CO2 26 mEq/l (24-31) Anion Gap 16.0 mmol/L (16-25) Bedside Blood Urea Nitrogen 10 mg/dl (7-18) Bedside Creatinine 0.7 mg/dl (0.6-1.3) Bedside Glucose (other) 97 mg/dl (70-99) Bedside Ionized Calcium (Chucho) 1.24 mmol/l (1.12-1.32) Medical Decision Patient was seen and evaluated as above in room D7. Review was performed of nursing notes and vital signs. After obtaining a thorough history and physical examination the above work up was performed. She presents to us today with neck pain status post manipulating/cracking her neck. Because of her tingling sensation down the left arm and presentation I will recommend a CTA of the neck. I-STAT obtained. I-STAT was appropriate. CT results as above. No dissection. Incidentals discussed with patient. She is to follow with the family doctor. She is to return with worsening. I did provide her a copy of the findings that she may follow-up with the family doctor for her discharge paperwork. She was given Flexeril for the muscle spasm. I do not suspect dissection given her workup here today rather I do suspect now muscle spasm. The patient was educated upon management, educated upon todays findings/results , educated upon symptoms in which to return, had questions answered prior to discharge, and was discharged home in good condition. Case was discussed with the attending physician. In the evaluation and treatment of this patient, the following differential diagnoses were considered: Musculoskeletal Strain, Discitis, Cervical Spine Fracture, Cervical Spine Dislocation, Cervical Spine Subluxation, Cervical Spondylosis, Fibromyalgia, Osteoarthritis, Polymyalgia Rheumatica, Psychogenic Pain Disorder, Tumor of Soft Tissue or Spine. Impression Primary Impression: Cervical strain Departure Information Dispostion Home / Self-Care Condition GOOD Prescriptions Cyclobenzaprine Hcl (FLEXERIL) 5 Mg Tab 1-2 TABS PO Q8 Y for Muscle Spasms, #20 TAB PRN Prov: John Newton PA-C 03/17/18 Referrals No Doctor, Assigned (PCP) Patient Instructions My [facility] Additional Instructions You have been treated in the Emergency Department for Neck Pain. You have been prescribed Flexeril (cyclobenzaprine) 1-2 tabs orally, three times per day. Do NOT exceed 30 mg (6 tabs) per day. Take your first dose at bedtime as it can make you drowsy. Always take all medications as prescribed. For pain control, you can use the following [id number] medicines (if >12 yo): - Regular strength (325mg/tab) Tylenol (acetaminophen) 2 tabs every 4-6 hours as needed. Do not exceed 12 tablets in a 24 hour period. Avoid taking more than 3 grams (3000 mg) of Tylenol per day. This includes any other sources of acetaminophen you may take on a regular basis. - Regular strength (200 mg/tab) Advil (ibuprofen) 1-2 tabs every 4-6 hours as needed. Do not exceed a dose of 3200 mg per day. If this is an acute injury, ice can be applied to the area of pain for the first 3 days to help decrease pain and inflammation. After the first 3 days, a heating pad can be used over the area for continued soothing relief. You should schedule a follow-up appointment in 2-3 days with your Primary Care Provider for further evaluation and treatment of your neck pain. Return to the Emergency Department if your current symptoms worsen despite treatment course outlined above, or if you develop any of the following symptoms : intractable pain despite aforementioned treatment course, loss of control of your bowel or bladder, numbness or tingling in your groin, or development of a fever. CT NECK ANGIO WITH CONTRAST CLINICAL HISTORY: Neck pain with left arm numbness and tingling. COMPARISON STUDY: No previous studies for comparison. TECHNIQUE: CT angiography was performed from the aortic arch to the skull base. MIP imaging was performed. The patient was scanned in a dynamic helical fashion during intravenous administration of 120 cc of Optiray 320. A dose lowering technique was utilized adhering to the principles of ALARA. CT DOSE: 525.21 mGy.cm Technique: CT angiogram of the carotid and vertebral arteries was obtained using intravenous contrast and 3-D reconstruction. NASCET criteria was utilized. Findings: The right carotid revealed no evidence of aneurysm and no evidence of dissection. There is no evidence of hemodynamic significant stenosis. The left carotid revealed no evidence of hemodynamic significant stenosis. There is no evidence of aneurysm. There is no evidence of dissection. There is no evidence of hemodynamically significant vertebral stenosis. There is no evidence of vertebral dissection. 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
[2018-03-17 16:43] VITALS: BP 144/89; PULSE 71; O2SAT 96
== END 2018-03-17 17:11 | disposition home or self-care (01) ==
LOC: C.EDB 13:58 → C.EDD 17:11
DX: S16.1XXA Strain of muscle, fascia and tendon at neck level, initial encounter (principal); X50.1XXA Overexertion from prolonged static or awkward postures, initial encounter; R20.0 Anesthesia of skin; F17.200 Nicotine dependence, unspecified, uncomplicated